=== PATIENT | female | born 1985 | race Caucasian/White ===

== ENCOUNTER → 2017-02-23 | Outpatient (CLI) | payer OTHER | LOC: FIMAGING 08:16 | PROVIDERS: ATTEND Advanced Practice Midwife | DX: Z34.92 Encounter for supervision of normal pregnancy, unspecified, second trimester (principal); Z3A.20 20 weeks gestation of pregnancy; Z82.79 Family history of other congenital malformations, deformations and chromosomal abnormalities ==

== ENCOUNTER → 2017-03-09 | Outpatient (CLI) | payer OTHER | LOC: FIMAGING 10:15 | PROVIDERS: ATTEND Advanced Practice Midwife | DX: Z34.92 Encounter for supervision of normal pregnancy, unspecified, second trimester (principal); Z3A.22 22 weeks gestation of pregnancy; Z82.79 Family history of other congenital malformations, deformations and chromosomal abnormalities ==

== ENCOUNTER 2017-07-11 01:49 | Inpatient (IN) | payer OTHER ==
[2017-07-11] MEDS ORDERED: TERBUTALINE SULFATE 1 MG/ML VIAL ONE (01:55)
[2017-07-11] MEDS ORDERED: AMMONIA AROMATIC 1 EACH AMP IH ONE (01:55)
[2017-07-11] MEDS ORDERED: OXYTOCIN 10 UNIT/ML VIAL ONE (01:55)
[2017-07-11] MEDS ORDERED: OLIVE OIL 118 ML BTL ONE (01:55)
[2017-07-11] MEDS ORDERED: MISOPROSTOL 200 MCG TAB ONE (01:55)
[2017-07-11] MEDS ORDERED: LIDOCAINE 1% 300 MG/30 ML SDV ONE (01:55)
--- NOTE | 2017-07-11 02:18 | OBDEL ---
Info Type: Vaginal GBS+: No Indications for Delivery: Spontaneous Labor, SROM Vaginal Delivery - Labor and Delivery Onset of Contractions Date: 07/11/17 Onset of Contractions Time: 00:00 Onset of Contractions Type: Spontaneous Rupture of Membranes Date: 07/11/17 Rupture of Membranes Time: 01:50 Rupture of Membranes Type: Spontaneous Amniotic Fluid Color: Meconium Stained Dilation Complete Date: 07/11/17 Dilation Complete Time: 01:53 Placenta Delivery Date: 07/11/17 Placenta Delivery Time: 02:02 Total Hours of Labor: 2 Vaginal Sponge Count Correct: Yes Vaginal Needle Count Correct: Yes Vaginal Sweep Performed: No EBL: 250 Delivery Events: None Delivery Comment: Perineum intact. Nurse adam delivered baby, delivered precipitously. - Medications Labor Augmentation/Induction Methods Used: None Data [place] Delivery Date: 07/11/17 Delivery Time: 01:53 GUERO: 07/12/17 Gestational Age: 39 week(s) and 6 day(s) Sex of : Female Score (1 Min): 8 Score (5 Min): 9 ICD10 Worksheet Patient Problems: Problems Problem Status Onset (spontaneous vaginal delivery) Acute
[2017-07-11] MEDS ORDERED: EPSOM SALT 454 GM TP PRN (02:20)
[2017-07-11] MEDS ORDERED: TERBUTALINE SULFATE 1 MG/ML VIAL IV PRN (02:20)
[2017-07-11] MEDS ORDERED: OLIVE OIL 118 ML BTL MISC PRN (02:20)
[2017-07-11] MEDS ORDERED: OXYTOCIN/RINGERS LACTATE 1,000 ML IV PRN (02:20)
[2017-07-11] MEDS ORDERED: LR 1,000 ML IV PRN (02:20)
[2017-07-11] MEDS: IBUPROFEN 600 MG TAB PO PRN ×3 (02:28→17:58)
--- NOTE | 2017-07-11 03:11 | GHP ---
[f rep st] HISTORY AND PHYSICAL DATE OF ADMISSION: 07/11/2017 HISTORY OF PRESENT ILLNESS: Patient is a 31 year-old 5, para 3, with an EDC of 07/12/2017, which gives her a gestational age of 39-6/7 weeks, who comes in with complaint of regular contractions since midnight of 07/11/2017. On admission, the patient was complete at 0153, S-ROM at 0150, and delivery was at 0153. Placenta was delivered at 0202 with Apgars of 8 and 9 with an EBL of 250. Perineum was intact. Has been receiving routine care through the [facility]. At 39 weeks, transferred care to [facility]. MEDICAL HISTORY: Anemia. HSV, type 1. Migraine headaches. Heart murmur. Inguinal hernia. SURGICAL HISTORY: Tonsils in 1991. [place] teeth in 2000. Inguinal hernia in 2013. GYNECOLOGICAL HISTORY: Previous use of Paragard IUD, OCPs. Paps have all been within normal limits. FAMILY HISTORY: Noncontributory. PREVIOUS HISTORY: Two babies born with VSD. #1 was in 2006 at 10 weeks' gestation, and that was an SAB. In 07/2009, 7 pounds 8 ounces , 40-3/7 weeks, 4-5 hours of labor, vaginally. In 11/2011, 7 pounds 9 ounces, 40 weeks, 6 hours, vaginally. In 01/2017, 7 pounds 12 ounces, 40-2/7 weeks, 3 hours, vaginally. Then, this . SOCIAL HISTORY: Patient is . No tobacco use. No street drug use. Previous to , 1-2 drinks per month. PHYSICAL EXAMINATION: GENERAL: Patient is awake, alert, oriented x3. LUNGS: Clear bilaterally. ABDOMEN: Bowel sounds are positive in all 4 quadrants. EXTREMITIES: DTRs are 1+ bilaterally. Homans sign is negative bilaterally. LABORATORY DATA: The patient is O positive. Antibody negative. RPR is nonreactive. Rubella is immune. Hepatitis is negative. HIV is negative. Trio screen was declined. Vitamin D was 21.9. Urine culture was negative. Gonorrhea and chlamydia were negative. All of genetic screening was declined. A 1-hour GTT was within normal limits. GBS was negative. On 04/28/2017, vitamin D was 58. PLAN OF CARE: 1. Patient was delivered precipitously by nurse. 2. Placenta was delivered without any difficulties. 3. No IV was available. IM Pitocin was given x1. 4. Perineum was intact. 5. Consult Dr. Malinda Tapia as needed for plan of care. /[id number]/MODL MTDD
[2017-07-11 06:14] LABS: % IMMATURE GRANULYOCYTES 0.9 % (0.0-1.1); ABSOLUTE IMMATURE GRANULOCYTES 0.13 10^3/uL (0.00-0.10); ADD DIFF? NO; ADD MORPH? NO; ADD SCAN? NO; ATYPICAL LYMPHOCYTE FLAG 0 (0-99); FRAGMENT RBC FLAG 0 (0-99); HEMATOCRIT 35.7 % (38.0-47.0); HEMOGLOBIN 12.6 g/dL (12.6-16.3); LEFT SHIFT FLG 0 (0-99); LIPEMIA HEMOLYSIS FLAG 90 (0-99); MEAN CELL HEMOGLOBIN 32.4 pg (27.9-34.1); MEAN CELL HEMOGLOBIN CONCENTR. 35.3 g/dL (32.4-36.7); MEAN CELL VOLUME 91.8 fL (81.5-99.8); MEAN PLATELET VOLUME 10.7 fL (8.7-11.7); PLATELET CLUMPS FLAG 0 (0-99); PLATELET COUNT 169 10^3/uL (150-400); RED BLOOD CELL COUNT 3.89 10^6/uL (4.18-5.33); RED CELL DISTRIBUTION WIDTH 13.1 % (11.5-15.2)
[2017-07-11] MEDS ORDERED: HYDROCORTISONE 0.5% CREAM TP PRN (11:36)
[2017-07-11] MEDS ORDERED: HYDROCODONE/APAP 5/325 TAB PO PRN (11:36)
[2017-07-11] MEDS ORDERED: DOCUSATE SODIUM 100 MG CAP PO PRN (11:36)
[2017-07-11] MEDS ORDERED: IBUPROFEN 600 MG TAB PO PRN (11:36)
[2017-07-11] MEDS ORDERED: SIMETHICONE 80 MG TAB CHEW PO PRN (11:36)
[2017-07-11 15:20] VITALS: RESP 16
[2017-07-11 16:44] VITALS: TEMP 97.9
[2017-07-11 20:56] VITALS: O2SAT 95
[2017-07-12] MEDS: IBUPROFEN 600 MG TAB PO PRN ×2 (01:57→07:55)
[2017-07-12 09:59] VITALS: BP 116/58; PULSE 68
--- NOTE | 2017-07-12 10:27 | OBPP ---
Progress Note Assessment/Plan: Assessment: well nipples intact pain well managed vs wnl perineum intact ff@u scant rubra lochia Plan:discharge to home with instructions fu 4 weeks and 6 weeks pain management , pericare, depression, contraception, continue pnv, pelvic rest, rest, exercise 07/12/17 10:28 Subjective: Doing well denies difficulties. well. PAin well managed. desires discharge Objective: 07/11/17 06:00 Patient ABO/Rh O POSITIVE 07/11/17 06:00 Temp Pulse Resp BP Pulse Ox 36.6 C 70 16 110/70 95 07/11/17 20:00 07/11/17 20:00 07/11/17 20:00 07/11/17 20:00 07/11/17 20:00 Uterine Position/Fundal Height: At Umbilicus Uterine Tone: Firm Physical Exam - Physical Exam General Appearance: WD/WN, alert, no apparent distress Abdomen: other (ff@u) Extremities: normal range of motion, Amauri's sign (negative bilaterally) DTR- Lower Extremities: Knee (R): 1+, Knee (L): 1+ (no clonus) Skin: normal color, warm/dry Neuro/Psych: no motor/sensory deficits, alert, normal mood/affect, oriented x 3
--- NOTE | 2017-07-12 10:37 | OBGCSDC ---
General Delivery Information - General Info : 5 Para: 1 Delivery Physician/CNM: Cesar Lee Labs: Patient ABO/Rh O POSITIVE 07/11/17 06:00 Hct 35.7 % (38.0-47.0) L 07/11/17 06:00 Vaginal - Diagnosis Labor: Spontaneous Rupture of Membranes Type: Spontaneous Amniotic Fluid Color: Meconium Stained Delivery Events: None - Operations/Procedures L&D Analgesia/Anesthesia Type: None - Hospital Course Antepartum: No significant problems antepartum Intrapartum: delivered precipitously/ srom and 10 in the hospital clear fluid. Intact perineum : Doing well denies difficulties. Pain well managed. well. Discharge to home pp day 1 - Delivery L&D Analgesia/Anesthesia Type: None [place] Data [place] Delivery Date: 07/11/17 Delivery Time: 01:53 GUERO: 07/12/17 Gestational Age: 40 week(s) and 0 day(s) Sex of : Female Weight (gm): 3626 g Score (1 Min): 8 Score (5 Min): 9 Discharge Information - Discharge Information Condition: Good
== END 2017-07-12 12:00 | disposition home or self-care (01) | DRG 775 ==
LOC: FLD 01:49 → FOB 03:47
PROVIDERS: ADMIT Advanced Practice Midwife; ATTEND Obstetrics & Gynecology
PROC: 10E0XZZ Delivery of Products of Conception, External Approach (ICD-10-PCS; principal; 2017-07-11)
DX: O62.3 Precipitate labor (principal); O77.0 Labor and delivery complicated by meconium in amniotic fluid; Z3A.39 39 weeks gestation of pregnancy; Z37.0 Single live birth
CPT/HCPCS: J3105